=== PATIENT | female | born 1990 | race Caucasian/White ===

== ENCOUNTER 2016-10-02 07:12 | Inpatient (IN) | payer OTHER ==
[~2016-10-02] VITALS: Ht 170.2 cm; Wt 82.7 kg
[2016-10-02] VITALS (11 sets, daily range): BP systolic 100–147; BP diastolic 55–75
[~2016-10-02 07:12] MED LIST: ASPIR 8181 M1 PO; IBUPROFEN800 MG PO; VITAFOL-OB+DHA1 EACH PO
[2016-10-02] MEDS ORDERED: PRENATAL TABLE1 EAC3 PO (07:54)
[2016-10-02 08:36] LABS: EOSINOPHIL COUNT 0.2 K/uL (0-0.3); HEMATOCRIT 35.6 % (36.0-46.0); IMMATURE GRANULOCYTE (%) 0.6 % (0.0-0.7); IMMATURE GRANULOCYTE COUNT 0.1 K/uL; INSTRUMENT ABS NEUTROPHIL CT 12.6 K/uL; LYMPHOCYTE COUNT 1.4 K/uL (1.0-2.8); MCH 32.1 PG (29.0-34.0); MCV 94.4 FL (83-99); MEAN PLAT.VOLUME 11.1 uM^3 (9.5-12.4); MONOCYTE (%) 7.2 % (3-12); MONOCYTE COUNT 1.1 K/uL (0-0.8); NEUTROPHIL (%) 81.9 % (45-76); NEUTROPHIL COUNT 12.6 K/uL (1.8-6.4); PLATELET COUNT 123 K/uL (156-360); RBC DIS.WIDTH-CV 13.9 % (11.8-14.6); RBC DIS.WIDTH-SD 47.8 % (39-53); RED BLOOD COUNT 3.77 M/uL (3.80-5.20); WHITE BLOOD COUNT 15.4 K/uL (4.1-10.2)
[2016-10-03 07:18] LABS: EOSINOPHIL COUNT 0.1 K/uL (0-0.3); HEMATOCRIT 33.9 % (36.0-46.0); IMMATURE GRANULOCYTE (%) 0.8 % (0.0-0.7); IMMATURE GRANULOCYTE COUNT 0.1 K/uL; INSTRUMENT ABS NEUTROPHIL CT 10.2 K/uL; LYMPHOCYTE COUNT 1.8 K/uL (1.0-2.8); MCH 32.1 PG (29.0-34.0); MCHC 33.6 G/DL (30.0-36.0); MCV 95.5 FL (83-99); MONOCYTE (%) 6.8 % (3-12); MONOCYTE COUNT 0.9 K/uL (0-0.8); NEUTROPHIL (%) 77.7 % (45-76); NEUTROPHIL COUNT 10.2 K/uL (1.8-6.4); PLATELET COUNT 116 K/uL (156-360); RBC DIS.WIDTH-SD 49.4 % (39-53); RED BLOOD COUNT 3.55 M/uL (3.80-5.20); WHITE BLOOD COUNT 13.1 K/uL (4.1-10.2)
[2016-10-03 07:30] VITALS: BP 113/79
[2016-10-03] MEDS ORDERED: IBUPROFEN800 MG PO (10:31)
[2016-10-03 15:10] VITALS: BP 106/56
== END 2016-10-03 16:53 | disposition home or self-care (01) | DRG 775 ==
LOC: LDRP-OP 07:12 → 2WEST 07:13 → LDRP-OP 11-08 16:13
PROVIDERS: Advanced Practice Midwife
DX: O69.81X0 Labor and delivery complicated by cord around neck, without compression, not applicable or unspecified (principal); Z3A.39 39 weeks gestation of pregnancy; Z37.0 Single live birth
CPT/HCPCS: 85025; C1755; J3010; J7120

== ENCOUNTER 2017-04-27 14:26 | Emergency (ER) | payer OTHER ==
[~2017-04-27] VITALS: Ht 170.2 cm; Wt 70.7 kg
[~2017-04-27 14:26] MED LIST changes: +PRENATAL TABLE1 EAC3 PO
[2017-04-27 17:20] LABS: HEMATOCRIT 37.8 % (36.0-46.0); HEMOGLOBIN 12.7 G/DL (11.9-15.5); MCH 30.3 PG (29.0-34.0); MCHC 33.6 G/DL (30.0-36.0); MCV 90.2 FL (83-99); PLATELET COUNT 187 K/uL (156-360); RBC DIS.WIDTH-CV 13.2 % (11.8-14.6); RBC DIS.WIDTH-SD 42.9 % (39-53); RED BLOOD COUNT 4.19 M/uL (3.80-5.20); WHITE BLOOD COUNT 6.7 K/uL (4.1-10.2)
[2017-04-27 17:28] LABS: ALBUMIN 4.2 g/dL (3.2-4.8); CHLORIDE 108 mEq/L (99-109); POTASSIUM 4.2 mEq/L (3.7-5.4); SODIUM 139 mEq/L (136-147)
[2017-04-27 17:30] LABS: GLUCOSE 86 mg/dL (70-99)
[2017-04-27 17:32] LABS: TOTAL BILIRUBIN 0.3 mg/dL (0.0-1.0)
[2017-04-27 17:34] LABS: ALKALINE PHOSPHATASE 81 IU/L (3-129); CREATININE 0.8 mg/dL (0.6-1.3); GFR ESTIMATE (CALCULATED) > 59 mL/min/
[2017-04-27 17:35] LABS: UREA NITROGEN (BUN) 17 mg/dL (9-23)
[2017-04-27 17:36] LABS: AST (GOT) 17 IU/L (2-34)
[2017-04-27 17:37] LABS: ALT (GPT) 13 IU/L (3-49)
[2017-04-27 19:34] VITALS: BP 116/69
[2017-04-27 19:52] LABS: ERTH.SED.RATE 12 MM/HR (0-20)
== END 2017-04-27 19:34 | disposition home or self-care (01) ==
LOC: EME 14:26
PROVIDERS: Nurse Practitioner Family
DX: J06.9 Acute upper respiratory infection, unspecified (principal); R11.2 Nausea with vomiting, unspecified
CPT/HCPCS: 80053; 85027; 85651; 87502; 87651 90; 99281; 99284